=== PATIENT | female | born 1965 | race Caucasian/White ===

== ENCOUNTER 2021-09-24 05:08 | Inpatient (IN) | payer BC ==
[2021-09-24] MEDS ORDERED: Celecoxib 200 MG Cap PO ONE (05:45)
[2021-09-24] MEDS ORDERED: Acetaminophen 500 MG Tab PO ONE (05:45)
[2021-09-24] MEDS ORDERED: Scopolamine 1.5 MG Transdermal Patch TOP SCH (05:45)
[2021-09-24] MEDS ORDERED: Dextrose 5%-Lactated Ringers 1,000 ML IV SCH (06:00)
[2021-09-24] MEDS ORDERED: cefOXitin 2 GM Vial ONE (06:34)
[2021-09-24] MEDS ORDERED: Glycopyrrolate 0.2 MG/ML 5 ML MDV ONE (07:04)
[2021-09-24] MEDS ORDERED: Dexamethasone 4 MG/ML SDV ONE (07:04)
[2021-09-24] MEDS ORDERED: Propofol 200 MG/20 ML SDV ONE (07:04)
[2021-09-24] MEDS ORDERED: Neostigmine Methylsulfate 1 MG/ML 5 ML Syringe ONE (07:04)
[2021-09-24] MEDS ORDERED: Succinylcholine 200 MG/10 ML MDV ONE (07:04)
[2021-09-24] MEDS ORDERED: Ondansetron 4 MG/2 ML SDV ONE (07:04)
[2021-09-24] MEDS ORDERED: fentaNYL 250 MCG/5 ML SDV ONE ×3 (07:04→07:49)
[2021-09-24] MEDS ORDERED: Rocuronium 50 MG/5 ML Vial ONE (07:04)
[2021-09-24] MEDS ORDERED: Ketamine 18 MG in Sodium Chloride 0.9% 19.82 ML IV SCH (07:30)
[2021-09-24] MEDS ORDERED: cefOXitin 2 GM in Sodium Chloride 0.9% 50 ML IV ONE (07:30)
[2021-09-24] MEDS ORDERED: Ketamine 500 MG/5 ML MDV IV SCH (07:30)
[2021-09-24] MEDS ORDERED: Labetalol 20 MG/4 ML Syringe ONE (07:49)
[2021-09-24] MEDS ORDERED: Cyclobenzaprine 10 MG Tab PO PRN (09:58)
[2021-09-24] MEDS ORDERED: Pantoprazole 40 MG Vial IVPUSH SCH ×2 (10:00→14:00)
[2021-09-24] MEDS ORDERED: hydrOXYzine HCL 100 MG/2 ML SDV IM PRN (10:00)
[2021-09-24] MEDS ORDERED: Metoclopramide 10 MG/2 ML SDV IVPUSH PRN (10:00)
[2021-09-24] MEDS ORDERED: Acetaminophen 500 MG Tab PO PRN (10:00)
[2021-09-24] MEDS ORDERED: diphenhydrAMINE 50 MG/ML SDV IVPUSH PRN (10:00)
[2021-09-24] MEDS ORDERED: HYDROmorphone 1 MG/ML Syringe IV PRN (10:00)
[2021-09-24] MEDS ORDERED: Labetalol 20 MG/4 ML Syringe IVPUSH PRN (10:00)
[2021-09-24] MEDS ORDERED: Ondansetron 4 MG/2 ML SDV IVPUSH PRN (10:00)
[2021-09-24] MEDS ORDERED: HYDROmorphone 0.5 MG/0.5 ML Syringe IVPUSH PRN (10:00)
[2021-09-24] MEDS ORDERED: traMADol 50 MG Tab PO PRN (10:00)
[2021-09-24 10:07] LABS: HEMOGLOBIN A1C 5.9 % (4.5-6.2)
[2021-09-24] MEDS: Dextrose 5%-Lactated Ringers 1,000 ML IV SCH ×3 (10:22→23:00)
[2021-09-24] MEDS: Acetaminophen 500 MG Tab PO SCH ×2 (13:30→21:47)
[2021-09-24] MEDS: cefOXitin 2 GM in Sodium Chloride 0.9% 50 ML IV SCH ×2 (13:32→19:38)
[2021-09-24] MEDS: oxyCODONE 5 MG Tab PO PRN ×2 (15:36→21:47)
[2021-09-24] MEDS ORDERED: MVI, Adult with Vitamin K 10 ML, Thiamine 200 MG, Zinc/Copper/Manganese/Selenium 1 ML i... IV SCH ×4 (16:00)
[2021-09-24] MEDS: Heparin Sodium 5,000 Units/ML Vial SUBCUT SCH (17:58)
[2021-09-25] MEDS: cefOXitin 2 GM in Sodium Chloride 0.9% 50 ML IV SCH ×3 (02:31→14:22)
[2021-09-25] MEDS ORDERED: Iopamidol 612 MG/ML 50 ML SDV PO STA (02:49)
[2021-09-25] MEDS: Dextrose 5%-Lactated Ringers 1,000 ML IV SCH ×2 (04:45→13:58)
[2021-09-25] MEDS: Acetaminophen 500 MG Tab PO SCH ×3 (05:38→21:18)
[2021-09-25] MEDS: Heparin Sodium 5,000 Units/ML Vial SUBCUT SCH ×2 (05:39→17:00)
[2021-09-25] MEDS: oxyCODONE 5 MG Tab PO PRN ×3 (07:40→21:18)
[2021-09-25] MEDS ORDERED: Pantoprazole 40 MG Vial IVPUSH SCH (09:00)
[2021-09-25] MEDS: SCOPOLAMINE PATCH CHECK TOP SCH (09:14)
[2021-09-25] MEDS: Celecoxib 200 MG Cap PO SCH ×2 (09:14→21:18)
[2021-09-25] MEDS ORDERED: MVI, Adult with Vitamin K 10 ML, Thiamine 200 MG, Zinc/Copper/Manganese/Selenium 1 ML i... IV SCH ×4 (16:00)
[2021-09-25] MEDS ORDERED: Pantoprazole 40 MG Delayed-Release Granules 1 Packet PO SCH (16:30)
[2021-09-26] MEDS: Dextrose 5%-Lactated Ringers 1,000 ML IV SCH (02:13)
[2021-09-26] MEDS: Acetaminophen 500 MG Tab PO SCH (05:29)
[2021-09-26] MEDS: Heparin Sodium 5,000 Units/ML Vial SUBCUT SCH (05:30)
[2021-09-26] MEDS ORDERED: Magnesium Hydroxide 400 MG/5 ML Susp 30 ML Cup PO PRN (07:21)
[2021-09-26] MEDS ORDERED: Cyanocobalamin (Vitamin B12) 1,000 MCG/ML SDV IM ONE (09:00)
[2021-09-26] MEDS: Celecoxib 200 MG Cap PO SCH (09:13)
[2021-09-26] MEDS: oxyCODONE 5 MG Tab PO PRN (09:13)
[2021-09-26] MEDS: SCOPOLAMINE PATCH CHECK TOP SCH (09:14)
== END 2021-09-26 09:50 | disposition still patient (30) | DRG 403 ==
LOC: JP.SDS 05:27 → JP.SDSSCHI 05:27 → UNDOADMIN 05:27 → JP.MS 05:27 → EDSTATUS 07:15 → JP.MS 09:00
PROVIDERS: ADMIT Surgery; ATTEND Surgery
PROC: 0DB64Z3 Excision of Stomach, Percutaneous Endoscopic Approach, Vertical (ICD-10-PCS; principal; 2021-09-24)
PROC: 0FB24ZX Excision of Left Lobe Liver, Percutaneous Endoscopic Approach, Diagnostic (ICD-10-PCS; 2021-09-24)
PROC: 0BQT4ZZ Repair Diaphragm, Percutaneous Endoscopic Approach (ICD-10-PCS; 2021-09-24)
PROC: 0JB63ZZ Excision of Chest Subcutaneous Tissue and Fascia, Percutaneous Approach (ICD-10-PCS; 2021-09-24)
DX: E66.01 Morbid (severe) obesity due to excess calories (principal); R16.0 Hepatomegaly, not elsewhere classified; K44.9 Diaphragmatic hernia without obstruction or gangrene; D17.1 Benign lipomatous neoplasm of skin and subcutaneous tissue of trunk; Z90.710 Acquired absence of both cervix and uterus; Z68.41 Body mass index [BMI] 40.0-44.9, adult
CPT/HCPCS: 36415; 74240; 74240-26; 80053; 83036; 83735; 84100; 85027; 86850; 86900; 86901; A9270-GY; C9113; J0171; J0330; J0694; J1100; J1170; J1644; J2405; J2704; J2710; J2795; J3010; J3411; J3420; J3490; J7121; Q9967